=== PATIENT | male | born 1980 | race Caucasian/White ===

== ENCOUNTER → 2024-10-21 | Outpatient (CLI) | payer BC ==
[2024-10-21 15:01] VITALS: BP 136/87; PULSE 66; RESP 16; TEMP 97.9
--- NOTE | 2024-10-21 15:33 | P.SLEEP ---
History of Present Illness H&P Date: 10/21/24 This is a pleasant 43-year-old male patient coming in to reestablish care regarding obstructive sleep apnea. The patient was seen in the sleep center in the past and the patient was diagnosed having obstructive sleep apnea, symptomatic despite its mild nature based on polysomnography that was done back in 2020. At that time, the patient had an AHI of 7 and the patient was offered APAP therapy pressures of 5/15 cm of water. The patient has remained extremely compliant to CPAP therapy over the years. The patient has been wearing his CPAP every night and the patient has been feeling well and denies having any major hypersomnia or sleepiness during the day. For now, he is going to bed at around 11 PM and waking at 5:30 AM in the morning. On weekends, he sleeps between midnight and 9 AM in the morning. Continues to work at the [employer] is an [employer]. His functionality is preserved. No daytime fatigue or sleepiness. His current [place] score is measured to be 8 or 8. Over the years, the patient gained weight. He was as high as 245 pounds. He was started on semaglutide and the patient has lost weight and currently his weight is down to 231 which is only 2 pounds above his baseline back in 2020. I checked the CPAP machine. The patient has a ResMed 10 CPAP unit which is functional. He is using a fullface mask which he purchases online. Based on a 30-day compliancy, I noted that the patient has been using the CPAP machine every night and is achieving more than 4 hours of usage 100% of the time and has been averaging on 6.2 hours of CPAP use per night and his 95th percentile pressure is at 9.4 with a leak of 37 L/min and his AHI is down to 0.4. He has no atrial fibrillation. No chest pain. No heartburn. No nighttime awakenings for shortness of breath. No nocturia. No issues with memory or concentration. No substance abuse. No stroke. No head trauma. No cardiac arrhythmias. Review of Systems Constitutional: Reports fatigue, Reports weight loss Eyes: denies as per HPI, denies blurred vision, denies bulging eye, denies decreased vision, denies diplopia, denies discharge, denies dry eye, denies irritation, denies itching, denies pain, denies photophobia, denies loss of peripheral vision, denies loss of vision, denies tunnel vision/blind spots Ears: deny: decreased hearing, ear discharge, earache, tinnitus Ears, nose, mouth and throat: Reports as per HPI Breasts: absent: as per HPI, gynecomastia Respiratory: Reports sleep apnea Gastrointestinal: Reports as per HPI Genitourinary: Reports as per HPI Musculoskeletal: Reports as per HPI Musculoskeletal: absent: ankle pain, ankle stiffness, ankle swelling, as per HPI, elbow pain, elbow stiffness, elbow swelling, foot pain, foot stiffness, foot swelling, hand pain, hand stiffness, hand swelling, hip pain, hip stiffness, hip swelling, knee pain, knee stiffness, knee swelling, shoulder pain, shoulder stiffness, shoulder swelling, wrist pain, wrist stiffness, wrist swelling Integumentary: Reports as per HPI Neurological: Reports as per HPI Psychiatric: Reports as per HPI Endocrine: Reports as per HPI Hematologic/Lymphatic: Reports as per HPI Allergic/Immunologic: Reports as per HPI Past Medical History Past Medical History: Sleep Apnea/CPAP/BIPAP, Thyroid Disorder Additional Past Medical History / Comment(s): celiac disease History of Any Multi-Drug Resistant Organisms: None Reported Past Surgical History: Appendectomy Additional Past Surgical History / Comment(s): umbilical hernia Past Anesthesia/Blood Transfusion Reactions: No Reported Reaction Past Psychological History: No Psychological Hx Reported Smoking Status: Former smoker Past Alcohol Use History: Occasional Past Drug Use History: None Reported - Past Family History Brother(s) Family Medical History: Asthma Medications and Allergies Home Medications Medication Instructions Recorded Confirmed Type Semaglutide [Wegovy] 1.18 mg INJ WEEKLY 10/21/24 10/21/24 History Thyroid,Pork [[place] Thyroid] 90 mg PO DAILY 10/21/24 10/21/24 History Physical Exam Vitals: Vital Signs Temp Pulse Resp BP Pulse Ox 10/21/24 14:58 97.9 F 66 16 136/87 97 Intake and Output 10/21/24 10/21/24 10/21/24 06:59 14:59 22:59 Other: Weight 104.78 kg The patient appeared well nourished and normally developed. Vital signs as documented. BMI is 29.6 Head exam is unremarkable. No scleral icterus or corneal arcus noted. Neck is without jugular venous distension, thyromegaly, or carotid bruits. Carotid upstrokes are brisk bilaterally. Lungs are clear to auscultation and percussion. Cardiac exam reveals the PMI to be normally sized and situated. Rhythm is regular. First and second heart sounds normal. No murmurs, rubs or gallops. Abdominal exam reveals normal bowel sounds, no masses, no organomegaly and no aortic enlargement. Extremities are nonedematous and both femoral and pedal pulses are normal. Examination of the skin revealed no evidence of significant rashes, suspicious appearing nevi or other concerning lesions. Neurologically, the patient is awake and alert and the patient does not have any focal neurological deficit. Cranial nerves are essentially intact. Assessment and Plan Plan: Symptomatic obstructive sleep apnea with an AHI of 7. Diagnosis established based on a sleep study that was performed back in 2020. The patient continues to receive successful APAP therapy with a pressure of 5/15 cm of water. Chronic hypersomnia, improved with CPAP therapy Fluctuating weight. The patient is currently on semaglutide and the patient has lost around 15 pounds. His current body mass index is 29.6 Hypothyroidism Plan This is a case of mild obstructive sleep apnea which has been successfully treated with CPAP therapy. The patient is doing extremely well. The patient remains compliant with CPAP therapy. The compliancy data was checked from his machine. The patient is using his machine regularly and his treatment has been very effective and successful. Denies having any major hypersomnia or sleepiness during the day. Using a fullface mask. Encouraged weight loss and the patient is currently on semaglutide. Using this device she measures. Maintain regular sleep schedule. See me back in few years time in follow-up. Machine is functional and treatment is successful. Sleep Note - Sleep Data ESS Total: 8 - Sleep Note Sleep Note: Temperature: 97.9 F Pulse Rate: 66 Respiratory Rate: 16 Blood Pressure: 136/87 SpO2: 97 Height: 6 ft 2 in Weight: 104.78 kg BMI: Neck Circumference: 15.5
== END ==
LOC: 3 N SLEEP 13:58
PROVIDERS: ATTEND Internal Medicine Critical Care Medicine
DX: G47.10 Hypersomnia, unspecified (principal); G47.33 Obstructive sleep apnea (adult) (pediatric); E03.9 Hypothyroidism, unspecified; Z99.89 Dependence on other enabling machines and devices; Z87.891 Personal history of nicotine dependence
CPT/HCPCS: 99202